=== PATIENT | male | born 1990 | race Two or more races ===

== ENCOUNTER 2020-05-21 12:37 | Emergency (ER) | payer OTHER ==
[~2020-05-21] VITALS: Ht 162.6 cm; Wt 72.0 kg
[2020-05-21 12:47] VITALS: BP 130/58
== END 2020-05-21 14:00 | disposition home or self-care (01) ==
LOC: ER 12:39
DX: Z03.818 Encounter for observation for suspected exposure to other biological agents ruled out (principal); Z00.00 Encounter for general adult medical examination without abnormal findings
CPT/HCPCS: 99281